=== PATIENT | male | born 1985 | race Caucasian/White ===

== ENCOUNTER 2020-08-06 03:17 | Emergency (ER) | payer MEDICAID | END 2020-08-06 07:18 | disposition home or self-care (01) | LOC: ER 03:17 | DX: S01.01XA Laceration without foreign body of scalp, initial encounter (principal); Y00.XXXA Assault by blunt object, initial encounter; Y93.89 Activity, other specified; Y92.89 Other specified places as the place of occurrence of the external cause | CPT/HCPCS: 12002; 93005; 99283 ==